=== PATIENT | female | born 1990 | race Caucasian/White ===

== ENCOUNTER 2017-05-18 20:37 | Observation (INO) | payer MEDICAID ==
[2017-05-18] MEDS ORDERED: Ondansetron 4 MG/2 ML SDV IVPUSH ONE (20:46)
[2017-05-18] MEDS ORDERED: Sodium Chloride 0.9% 1,000 ML IV ONE (20:46)
[2017-05-18] MEDS ORDERED: Morphine 4 MG/ML Syringe IVPUSH ONE (20:58)
--- NOTE | 2017-05-18 20:58 | EDM.PDOC ---
<Jadon Rivera - Last Filed: 05/18/17 22:48> ED HPI GENERAL MEDICAL PROBLEM - General Chief Complaint: Abdominal Pain Stated Complaint: VOMITING Time Seen by Provider: 05/18/17 20:44 - History of Present Illness INITIAL COMMENTS - FREE TEXT/NARRATIVE: CT demonstrates acute appendicitis without rupture general surgery was consult with Dr. Eaton will see the patient in the emergency department for further evaluation admission and orders - Related Data Allergies Allergy/AdvReac Type Severity Reaction Status Date / Time No Known Allergies Allergy Verified 05/19/17 01:56 Home Meds: Home Meds Ciprofloxacin HCl [Cipro] 500 mg PO BID 5 Days #10 tablet 05/20/17 [Rx] traMADol [Ultram] 50 mg PO Q6H PRN #20 tab 05/20/17 [Rx] Course - Vital Signs Last Recorded V/S: Last Vital Signs Temp 98.8 F 05/20/17 08:00 Pulse 90 05/20/17 14:49 Resp 16 05/20/17 14:49 BP 107/69 05/20/17 08:00 Pulse Ox 98 05/20/17 08:00 - Orders/Labs/Meds Labs: Laboratory Tests 05/18/17 05/18/17 05/18/17 Range/Units 20:50 20:50 20:50 WBC 14.70 H (4.0-11.0) K/uL RBC 4.08 L (4.30-5.90) M/uL Hgb 13.4 (12.0-16.0) g/dL Hct 38.3 (36.0-46.0) % MCV 93.9 (80.0-98.0) fL MCH 32.8 H (27.0-32.0) pg MCHC 35.0 (31.0-37.0) g/dL RDW Std Deviation 43.2 (28.0-62.0) fl RDW Coeff of Ryann 13 (11.0-15.0) % Plt Count 323 (150-400) K/uL MPV 9.00 (7.40-12.00) fL Neut % (Auto) 76.4 (48.0-80.0) % Lymph % (Auto) 15.7 L (16.0-40.0) % [place] % (Auto) 7.5 (0.0-15.0) % Eos % (Auto) 0.3 (0.0-7.0) % Baso % (Auto) 0.1 (0.0-1.5) % Neut # (Auto) 11.2 H (1.4-5.7) K/uL Lymph # (Auto) 2.3 (0.6-2.4) K/uL [place] # (Auto) 1.1 H (0.0-0.8) K/uL Eos # (Auto) 0.1 (0.0-0.7) K/uL Baso # (Auto) 0.0 (0.0-0.1) K/uL Nucleated RBC % 0.0 /100WBC Nucleated RBCs # 0 K/uL Sodium 135 L (136-145) mmol/L Potassium 3.5 (3.5-5.1) mmol/L Chloride 100 (98-107) mmol/L Carbon Dioxide 24.5 (21.0-32.0) mmol/L BUN 12 (7.0-18.0) mg/dL Creatinine 0.7 (0.6-1.0) mg/dL Est Cr Clr Drug Dosing 108.63 mL/min Estimated GFR (MDRD) > 60.0 ml/min Glucose 99 (74-106) mg/dL Calcium 9.5 (8.5-10.1) mg/dL Total Bilirubin 0.7 (0.2-1.0) mg/dL AST 17 (15-37) IU/L ALT 27 (14-63) IU/L Alkaline Phosphatase 63 (46-116) U/L Total Protein 7.9 (6.4-8.2) g/dL Albumin 3.9 (3.4-5.0) g/dL Globulin 4.0 H (2.0-3.5) g/dL Albumin/Globulin Ratio 1.0 L (1.3-2.8) Amylase 41 (25-115) U/L Lipase 94 (73-393) U/L HCG, Qual (NEG) Urine Color Urine Appearance Urine pH (5.0-8.0) Ur Specific [place] (1.001-1.035) Urine Protein (NEGATIVE) mg/dL Urine Glucose (UA) (NEGATIVE) mg/dL Urine Ketones (NEGATIVE) mg/dL Urine Occult Blood (NEGATIVE) Urine Nitrite (NEGATIVE) Urine Bilirubin (NEGATIVE) Urine Urobilinogen (<2.0) EU/dL Ur Leukocyte Esterase (NEGATIVE) Urine RBC (0-2/HPF) Urine WBC (0-5/HPF) Ur Epithelial Cells (NONE-FEW) Urine Bacteria (NEGATIVE) 05/18/17 05/18/17 Range/Units 20:50 22:40 WBC (4.0-11.0) K/uL RBC (4.30-5.90) M/uL Hgb (12.0-16.0) g/dL Hct (36.0-46.0) % MCV (80.0-98.0) fL MCH (27.0-32.0) pg MCHC (31.0-37.0) g/dL RDW Std Deviation (28.0-62.0) fl RDW Coeff of Ryann (11.0-15.0) % Plt Count (150-400) K/uL MPV (7.40-12.00) fL Neut % (Auto) (48.0-80.0) % Lymph % (Auto) (16.0-40.0) % [place] % (Auto) (0.0-15.0) % Eos % (Auto) (0.0-7.0) % Baso % (Auto) (0.0-1.5) % Neut # (Auto) (1.4-5.7) K/uL Lymph # (Auto) (0.6-2.4) K/uL [place] # (Auto) (0.0-0.8) K/uL Eos # (Auto) (0.0-0.7) K/uL Baso # (Auto) (0.0-0.1) K/uL Nucleated RBC % /100WBC Nucleated RBCs # K/uL Sodium (136-145) mmol/L Potassium (3.5-5.1) mmol/L Chloride (98-107) mmol/L Carbon Dioxide (21.0-32.0) mmol/L BUN (7.0-18.0) mg/dL Creatinine (0.6-1.0) mg/dL Est Cr Clr Drug Dosing mL/min Estimated GFR (MDRD) ml/min Glucose (74-106) mg/dL Calcium (8.5-10.1) mg/dL Total Bilirubin (0.2-1.0) mg/dL AST (15-37) IU/L ALT (14-63) IU/L Alkaline Phosphatase (46-116) U/L Total Protein (6.4-8.2) g/dL Albumin (3.4-5.0) g/dL Globulin (2.0-3.5) g/dL Albumin/Globulin Ratio (1.3-2.8) Amylase (25-115) U/L Lipase (73-393) U/L HCG, Qual NEGATIVE (NEG) Urine Color YELLOW Urine Appearance CLEAR Urine pH 6.5 (5.0-8.0) Ur Specific [place] <= 1.005 (1.001-1.035) Urine Protein TRACE (NEGATIVE) mg/dL Urine Glucose (UA) NEGATIVE (NEGATIVE) mg/dL Urine Ketones >=80 (NEGATIVE) mg/dL Urine Occult Blood NEGATIVE (NEGATIVE) Urine Nitrite NEGATIVE (NEGATIVE) Urine Bilirubin NEGATIVE (NEGATIVE) Urine Urobilinogen 0.2 (<2.0) EU/dL Ur Leukocyte Esterase NEGATIVE (NEGATIVE) Urine RBC 0-2 (0-2/HPF) Urine WBC 1-2 (0-5/HPF) Ur Epithelial Cells FEW (NONE-FEW) Urine Bacteria FEW (NEGATIVE) Meds: Medications Discontinued Medications Generic Name Dose Route Start Last Admin Trade Name Mónica PRN Reason Stop Dose Admin Acetaminophen 650 mg 05/19/17 10:38 Tylenol PO Q6H PRN Pain (mild 1-3) Bupivacaine HCl Confirm 05/19/17 08:09 Sensorcaine-Mpf 0.5% Administered 05/19/17 08:10 Dose 10 ml .ROUTE .STK-MED ONE Cefazolin Sodium Confirm 05/19/17 08:09 Ancef Administered 05/19/17 08:10 Dose 1 gm .ROUTE .STK-MED ONE Dexamethasone Confirm 05/19/17 08:18 Dexamethasone Administered 05/19/17 08:19 Dose 20 mg .ROUTE .STK-MED ONE Fentanyl Confirm 05/19/17 08:11 Sublimaze Administered 05/19/17 08:12 Dose 250 mcg .ROUTE .STK-MED ONE Fentanyl 50 mcg 05/19/17 09:47 Sublimaze IVPUSH 05/19/17 13:00 Q5M PRN Pain (moderate 4-6) Glycopyrrolate Confirm 05/19/17 10:01 Robinul Administered 05/19/17 10:02 Dose 0.4 mg .ROUTE .STK-MED ONE Sodium Chloride 1,000 mls @ 999 mls/hr 05/18/17 20:46 05/18/17 20:58 Normal Saline IV 05/18/17 21:46 999 mls/hr STAT ONE Administration Cefoxitin Sodium 2 gm/ Premix 50 mls @ 100 mls/hr 05/18/17 23:18 05/18/17 23: 49 IV 05/18/17 23:47 100 mls/hr ONETIME ONE Administration Lactated Ringer's 1,000 mls @ 125 mls/hr 05/18/17 23:30 05/20/17 08:33 Ringers, Lactated IV 125 mls/hr ASDIRECTED MUMTAZ Administration Cefoxitin Sodium 1 gm/ Premix 50 mls @ 100 mls/hr 05/19/17 09:00 05/19/17 15: 58 IV 05/21/17 09:29 100 mls/hr ONETIME MUMTAZ Administration Cefoxitin Sodium Confirm 05/19/17 08:13 Mefoxin In Dextrose,Iso-Osm 1 Gm/50 Ml Administered 05/19/17 08:14 Dose 50 mls @ as directed .ROUTE .STK-MED ONE Cefoxitin Sodium 1 gm/ Premix 50 mls @ 100 mls/hr 05/19/17 16:00 05/20/17 08: 45 IV 05/20/17 08:29 100 mls/hr Q8H MUMTAZ Administration Iopamidol 100 ml 05/18/17 21:46 05/18/17 22:17 Isovue-370 (76%) IVPUSH 05/18/17 21:47 100 ml ONETIME STA Administration Lidocaine HCl Confirm 05/19/17 08:15 Xylocaine-Mpf 1% Administered 05/19/17 08:16 Dose 5 ml .ROUTE .STK-MED ONE Midazolam HCl Confirm 05/19/17 08:11 Versed 1 Mg/Ml Administered 05/19/17 08:12 Dose 2 mg .ROUTE .STK-MED ONE Morphine Sulfate 4 mg 05/18/17 20:58 05/18/17 21:03 Morphine IVPUSH 05/18/17 20:59 4 mg ONETIME ONE Administration Morphine Sulfate 0 mg 05/18/17 23:49 05/19/17 07:19 Morphine IVPUSH 2 mg Q1H PRN Administration Pain Neostigmine Methylsulfate Confirm 05/19/17 10:01 Neostigmine Administered 05/19/17 10:02 Dose 5 mg .ROUTE .STK-MED ONE Ondansetron HCl 4 mg 05/18/17 20:46 05/18/17 20:58 Zofran IVPUSH 05/18/17 20:47 4 mg ONETIME ONE Administration Ondansetron HCl 4 mg 05/18/17 23:50 05/19/17 02:34 Zofran IVPUSH 4 mg Q6H PRN Administration Nausea/Vomiting Ondansetron HCl Confirm 05/19/17 08:17 Zofran Administered 05/19/17 08:18 Dose 4 mg .ROUTE .STK-MED ONE Oxycodone/Acetaminophen 2 tab 05/19/17 10:38 05/20/17 12:14 Percocet 325-5 Mg PO 2 tab Q4H PRN Administration Pain (moderate 4-6) Promethazine HCl 25 mg 05/19/17 10:38 Phenergan IM Q6H PRN Nausea Propofol Confirm 05/19/17 08:11 Diprivan 20 Ml Administered 05/19/17 08:12 Dose 200 mg .ROUTE .STK-MED ONE Rocuronium [place] Confirm 05/19/17 08:15 Zemuron Administered 05/19/17 08:16 Dose 100 mg .ROUTE .STK-MED ONE Succinylcholine Chloride Confirm 05/19/17 08:15 Quelicin Administered 05/19/17 08:16 Dose 200 mg .ROUTE .STK-MED ONE Departure - Departure Time of Disposition: 22:49 Disposition: Admitted As Inpatient 65 Condition: Good Clinical Impression: Appendicitis Qualifiers: Appendicitis type: acute appendicitis Acute appendicitis type: with localized peritonitis Qualified Code(s): K35.3 - Acute appendicitis with localized peritonitis - Discharge Information <Glo Gonzalez - Last Filed: 05/24/17 21:21> ED HPI GENERAL MEDICAL PROBLEM - General Source of Information: Reports: Patient History Limitations: Reports: No Limitations - History of Present Illness INITIAL COMMENTS - FREE TEXT/NARRATIVE: HISTORY AND PHYSICAL: History of present illness: Patient is a 26-year-old female who presents to the emergency room today with complaints of nausea, vomiting and generalized abdominal pain. She states that on 05/14/2017, she started to have epigastric pain which has now migrated into her mid and right lower quadrant. Monday she began to have intermittent nausea and vomiting. Yesterday she started to have some dysuria. She denies any fever, chills, chest pain or shortness of breath. States she has had some loose stools but no diarrhea/constipation. Currently on her menstrual period, "normal". Review of systems: As per history of present illness and below otherwise all systems reviewed and negative. Past medical history: As per history of present illness and as reviewed below otherwise noncontributory. Surgical history: As per history of present illness and as reviewed below otherwise noncontributory. Social history: No reported history of drug or alcohol abuse. Family history: As per history of present illness and as reviewed below otherwise noncontributory. Physical exam: General: Well-developed and well-nourished 26-year-old female. Alert and oriented. Nontoxic appearing and in no acute distress. HEENT: Atraumatic, normocephalic, pupils reactive, negative for conjunctival pallor or scleral icterus, mucous membranes dry, throat clear, neck supple, nontender, trachea midline. Lungs: Clear to auscultation, breath sounds equal bilaterally, chest nontender. Heart: S1S2, regular, negative for clicks, rubs, or JVD. Abdomen: Soft, nondistended, tenderness to the umbilical area and right lower quadrant. Rebound tenderness RLQ. Negative for masses or hepatosplenomegaly. Negative for costovertebral tenderness. Pelvis: Stable nontender. Genitourinary: Deferred. Rectal: Deferred. Extremities: Atraumatic, moves all extremities per self without difficulty and deficits, negative for cords or calf pain. Neurovascular unremarkable. Neuro: Awake, alert, oriented. Cranial nerves II through XII unremarkable. Cerebellum unremarkable. Motor and sensory unremarkable throughout. Exam nonfocal. Notes: Patient does appear to be dehydrated as her lips are dry and cracked. IV fluids and medications will be given. Diagnostics: CBC, CMP, amylase, lipase, UA, urine , CT abdomen and pelvis Therapeutics: IV fluid, Zofran, morphine Impression: Appendicitis Plan: Admission Definitive disposition and diagnosis as appropriate pending reevaluation and review of above. Duration: Day(s): Location: Reports: Abdomen Abdomen Pain Score (Numeric/FACES): 10 ED ROS GENERAL - Review of Systems Review Of Systems: ROS reveals no pertinent complaints other than HPI. ED EXAM, GI/ABD - Physical Exam Exam: See Below (See dictation) Course - Orders/Labs/Meds Labs: Laboratory Tests 05/18/17 05/18/17 05/18/17 Range/Units 20:50 20:50 20:50 WBC 14.70 H (4.0-11.0) K/uL RBC 4.08 L (4.30-5.90) M/uL Hgb 13.4 (12.0-16.0) g/dL Hct 38.3 (36.0-46.0) % MCV 93.9 (80.0-98.0) fL MCH 32.8 H (27.0-32.0) pg MCHC 35.0 (31.0-37.0) g/dL RDW Std Deviation 43.2 (28.0-62.0) fl RDW Coeff of Ryann 13 (11.0-15.0) % Plt Count 323 (150-400) K/uL MPV 9.00 (7.40-12.00) fL Neut % (Auto) 76.4 (48.0-80.0) % Lymph % (Auto) 15.7 L (16.0-40.0) % [place] % (Auto) 7.5 (0.0-15.0) % Eos % (Auto) 0.3 (0.0-7.0) % Baso % (Auto) 0.1 (0.0-1.5) % Neut # (Auto) 11.2 H (1.4-5.7) K/uL Lymph # (Auto) 2.3 (0.6-2.4) K/uL [place] # (Auto) 1.1 H (0.0-0.8) K/uL Eos # (Auto) 0.1 (0.0-0.7) K/uL Baso # (Auto) 0.0 (0.0-0.1) K/uL Nucleated RBC % 0.0 /100WBC Nucleated RBCs # 0 K/uL Sodium 135 L (136-145) mmol/L Potassium 3.5 (3.5-5.1) mmol/L Chloride 100 (98-107) mmol/L Carbon Dioxide 24.5 (21.0-32.0) mmol/L BUN 12 (7.0-18.0) mg/dL Creatinine 0.7 (0.6-1.0) mg/dL Est Cr Clr Drug Dosing 108.63 mL/min Estimated GFR (MDRD) > 60.0 ml/min Glucose 99 (74-106) mg/dL Calcium 9.5 (8.5-10.1) mg/dL Total Bilirubin 0.7 (0.2-1.0) mg/dL AST 17 (15-37) IU/L ALT 27 (14-63) IU/L Alkaline Phosphatase 63 (46-116) U/L Total Protein 7.9 (6.4-8.2) g/dL Albumin 3.9 (3.4-5.0) g/dL Globulin 4.0 H (2.0-3.5) g/dL Albumin/Globulin Ratio 1.0 L (1.3-2.8) Amylase 41 (25-115) U/L Lipase 94 (73-393) U/L HCG, Qual (NEG) Urine Color Urine Appearance Urine pH (5.0-8.0) Ur Specific [place] (1.001-1.035) Urine Protein (NEGATIVE) mg/dL Urine Glucose (UA) (NEGATIVE) mg/dL Urine Ketones (NEGATIVE) mg/dL Urine Occult Blood (NEGATIVE) Urine Nitrite (NEGATIVE) Urine Bilirubin (NEGATIVE) Urine Urobilinogen (<2.0) EU/dL Ur Leukocyte Esterase (NEGATIVE) Urine RBC (0-2/HPF) Urine WBC (0-5/HPF) Ur Epithelial Cells (NONE-FEW) Urine Bacteria (NEGATIVE) 05/18/17 05/18/17 Range/Units 20:50 22:40 WBC (4.0-11.0) K/uL RBC (4.30-5.90) M/uL Hgb (12.0-16.0) g/dL Hct (36.0-46.0) % MCV (80.0-98.0) fL MCH (27.0-32.0) pg MCHC (31.0-37.0) g/dL RDW Std Deviation (28.0-62.0) fl RDW Coeff of Ryann (11.0-15.0) % Plt Count (150-400) K/uL MPV (7.40-12.00) fL Neut % (Auto) (48.0-80.0) % Lymph % (Auto) (16.0-40.0) % [place] % (Auto) (0.0-15.0) % Eos % (Auto) (0.0-7.0) % Baso % (Auto) (0.0-1.5) % Neut # (Auto) (1.4-5.7) K/uL Lymph # (Auto) (0.6-2.4) K/uL [place] # (Auto) (0.0-0.8) K/uL Eos # (Auto) (0.0-0.7) K/uL Baso # (Auto) (0.0-0.1) K/uL Nucleated RBC % /100WBC Nucleated RBCs # K/uL Sodium (136-145) mmol/L Potassium (3.5-5.1) mmol/L Chloride (98-107) mmol/L Carbon Dioxide (21.0-32.0) mmol/L BUN (7.0-18.0) mg/dL Creatinine (0.6-1.0) mg/dL Est Cr Clr Drug Dosing mL/min Estimated GFR (MDRD) ml/min Glucose (74-106) mg/dL Calcium (8.5-10.1) mg/dL Total Bilirubin (0.2-1.0) mg/dL AST (15-37) IU/L ALT (14-63) IU/L Alkaline Phosphatase (46-116) U/L Total Protein (6.4-8.2) g/dL Albumin (3.4-5.0) g/dL Globulin (2.0-3.5) g/dL Albumin/Globulin Ratio (1.3-2.8) Amylase (25-115) U/L Lipase (73-393) U/L HCG, Qual NEGATIVE (NEG) Urine Color YELLOW Urine Appearance CLEAR Urine pH 6.5 (5.0-8.0) Ur Specific [place] <= 1.005 (1.001-1.035) Urine Protein TRACE (NEGATIVE) mg/dL Urine Glucose (UA) NEGATIVE (NEGATIVE) mg/dL Urine Ketones >=80 (NEGATIVE) mg/dL Urine Occult Blood NEGATIVE (NEGATIVE) Urine Nitrite NEGATIVE (NEGATIVE) Urine Bilirubin NEGATIVE (NEGATIVE) Urine Urobilinogen 0.2 (<2.0) EU/dL Ur Leukocyte Esterase NEGATIVE (NEGATIVE) Urine RBC 0-2 (0-2/HPF) Urine WBC 1-2 (0-5/HPF) Ur Epithelial Cells FEW (NONE-FEW) Urine Bacteria FEW (NEGATIVE)
[2017-05-18 21:23] LABS: CHLORIDE,CL 100 mmol/L (98-107); SODIUM,NA 135 mmol/L (136-145)
[2017-05-18] MEDS ORDERED: Iopamidol 755 Mg/ML 100 ML Bottle IVPUSH STA (21:46)
[2017-05-18] MEDS ORDERED: cefOXitin 2 GM in Premix Bag 1 BAG IV ONE (23:18)
--- NOTE | 2017-05-18 23:18 | PCM.HP ---
H&P History of Present Illness - General Date of Service: 05/18/17 Source of Information: Patient History Limitations: Reports: No Limitations - History of Present Illness Onset of Symptoms: Reports: Gradual Symptom Onset Date: 05/16/17 Duration of Symptoms: Reports: Day(s):, Getting Worse Location: Reports: Abdomen Quality: Reports: Ache, Pressure Severity: Moderate Improves with: Reports: Rest Worsens with: Reports: Movement Context: Reports: Sick Contact Associated Symptoms: Reports: Nausea/Vomiting Abdomen Pain Score (Numeric/FACES): 10 - Related Data Allergies/Adverse Reactions: Allergies Allergy/AdvReac Type Severity Reaction Status Date / Time No Known Allergies Allergy Verified 05/18/17 20:47 Home Medications: Home Meds . 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: Musculoskeletal History: Reports: None Neurological History: Reports: None Psychiatric History: Reports: None Endocrine/Metabolic History: Reports: None Hematologic History: Reports: None Immunologic History: Reports: None Oncologic (Cancer) History: Reports: None Dermatologic History: Reports: None - Infectious Disease History Infectious Disease History: Reports: None - Past Surgical History Head Surgeries/Procedures: Reports: None GI Surgical History: Reports: Cholecystectomy Social & Family History - Family History Family Medical History: Noncontributory - Tobacco Use Smoking Status *Q: Never Smoker - Caffeine Use Caffeine Use: Reports: Coffee - Alcohol Use Alcohol Use History: Yes - Recreational Drug Use Recreational Drug Use: No H&P Review of Systems - Review of Systems: Review Of Systems: See Below General: Reports: Fever, Decreased Appetite. Denies: Chills, Night Sweats HEENT: Reports: No Symptoms Pulmonary: Denies: Shortness of Breath, Wheezing Cardiovascular: Denies: Chest Pain, Palpitations Gastrointestinal: Reports: Abdominal Pain, Anorexia, Diarrhea, Decreased Appetite, Flatus, Nausea, Vomiting. Denies: Black Stool, Bloody Stool, Constipation, Difficulty Swallowing, Distension, Hematemesis, Hematochezia, Melena Genitourinary: Reports: No Symptoms Musculoskeletal: Reports: No Symptoms Skin: Reports: No Symptoms Psychiatric: Reports: No Symptoms Neurological: Reports: No Symptoms Hematologic/Lymphatic: Reports: No Symptoms Immunologic: Reports: No Symptoms Exam - Exam Exam: See Below - Vital Signs Vital Signs: Last Vital Signs Temp 99.5 F 05/18/17 23:00 Pulse 92 05/18/17 23:00 Resp 17 05/18/17 23:00 BP 111/57 L 05/18/17 23:00 Pulse Ox 98 05/18/17 23:00 Weight: 180 lb - Exam General: Alert, Oriented, Cooperative, Mild Distress HEENT: Conjunctiva Clear, Pupils Equal, Pupils Reactive Neck: Supple, Trachea Midline Lungs: Clear to Auscultation, Normal Respiratory Effort. No: Wheezing Cardiovascular: Regular Rate, Regular Rhythm, Normal S1, Normal S2. No: Tachycardia, Systolic Murmur, Diastolic Murmur GI/Abdominal Exam: Normal Bowel Sounds, Soft, No Distention, Rebound, Tender. No: Guarding, Rigid, Hernia, Mass (Female) Exam: Deferred Rectal (Female) Exam: Deferred Back Exam: Normal Inspection Extremities: Normal Inspection Peripheral Pulses: 4+: Posterior Tibial (L), Posterior Tibial (R), Dorsalis Pedis (L), Dorsalis Pedis (R) Skin: Warm, Dry, Intact Neurological: Cranial Nerves Intact Neuro Extensive - Mental Status: Alert, Oriented x3 Psychiatric: Alert, Normal Affect, Normal Mood - Patient Data Lab Results Last 24 hrs: Laboratory Results - last 24 hr 05/18/17 05/18/17 05/18/17 Range/Units 20:50 20:50 20:50 WBC 14.70 H (4.0-11.0) K/uL RBC 4.08 L (4.30-5.90) M/uL Hgb 13.4 (12.0-16.0) g/dL Hct 38.3 (36.0-46.0) % MCV 93.9 (80.0-98.0) fL MCH 32.8 H (27.0-32.0) pg MCHC 35.0 (31.0-37.0) g/dL RDW Std Deviation 43.2 (28.0-62.0) fl RDW Coeff of Ryann 13 (11.0-15.0) % Plt Count 323 (150-400) K/uL MPV 9.00 (7.40-12.00) fL Neut % (Auto) 76.4 (48.0-80.0) % Lymph % (Auto) 15.7 L (16.0-40.0) % Webb % (Auto) 7.5 (0.0-15.0) % Eos % (Auto) 0.3 (0.0-7.0) % Baso % (Auto) 0.1 (0.0-1.5) % Neut # (Auto) 11.2 H (1.4-5.7) K/uL Lymph # (Auto) 2.3 (0.6-2.4) K/uL Webb # (Auto) 1.1 H (0.0-0.8) K/uL Eos # (Auto) 0.1 (0.0-0.7) K/uL Baso # (Auto) 0.0 (0.0-0.1) K/uL Nucleated RBC % 0.0 /100WBC Nucleated RBCs # 0 K/uL Sodium 135 L (136-145) mmol/L Potassium 3.5 (3.5-5.1) mmol/L Chloride 100 (98-107) mmol/L Carbon Dioxide 24.5 (21.0-32.0) mmol/L BUN 12 (7.0-18.0) mg/dL Creatinine 0.7 (0.6-1.0) mg/dL Est Cr Clr Drug Dosing 108.63 mL/min Estimated GFR (MDRD) > 60.0 ml/min Glucose 99 (74-106) mg/dL Calcium 9.5 (8.5-10.1) mg/dL Total Bilirubin 0.7 (0.2-1.0) mg/dL AST 17 (15-37) IU/L ALT 27 (14-63) IU/L Alkaline Phosphatase 63 (46-116) U/L Total Protein 7.9 (6.4-8.2) g/dL Albumin 3.9 (3.4-5.0) g/dL Globulin 4.0 H (2.0-3.5) g/dL Albumin/Globulin Ratio 1.0 L (1.3-2.8) Amylase 41 (25-115) U/L Lipase 94 (73-393) U/L HCG, Qual (NEG) Urine Color Urine Appearance Urine pH (5.0-8.0) Ur Specific [place] (1.001-1.035) Urine Protein (NEGATIVE) mg/dL Urine Glucose (UA) (NEGATIVE) mg/dL Urine Ketones (NEGATIVE) mg/dL Urine Occult Blood (NEGATIVE) Urine Nitrite (NEGATIVE) Urine Bilirubin (NEGATIVE) Urine Urobilinogen (<2.0) EU/dL Ur Leukocyte Esterase (NEGATIVE) Urine RBC (0-2/HPF) Urine WBC (0-5/HPF) Ur Epithelial Cells (NONE-FEW) Urine Bacteria (NEGATIVE) 05/18/17 05/18/17 Range/Units 20:50 22:40 WBC (4.0-11.0) K/uL RBC (4.30-5.90) M/uL Hgb (12.0-16.0) g/dL Hct (36.0-46.0) % MCV (80.0-98.0) fL MCH (27.0-32.0) pg MCHC (31.0-37.0) g/dL RDW Std Deviation (28.0-62.0) fl RDW Coeff of Ryann (11.0-15.0) % Plt Count (150-400) K/uL MPV (7.40-12.00) fL Neut % (Auto) (48.0-80.0) % Lymph % (Auto) (16.0-40.0) % Webb % (Auto) (0.0-15.0) % Eos % (Auto) (0.0-7.0) % Baso % (Auto) (0.0-1.5) % Neut # (Auto) (1.4-5.7) K/uL Lymph # (Auto) (0.6-2.4) K/uL Webb # (Auto) (0.0-0.8) K/uL Eos # (Auto) (0.0-0.7) K/uL Baso # (Auto) (0.0-0.1) K/uL Nucleated RBC % /100WBC Nucleated RBCs # K/uL Sodium (136-145) mmol/L Potassium (3.5-5.1) mmol/L Chloride (98-107) mmol/L Carbon Dioxide (21.0-32.0) mmol/L BUN (7.0-18.0) mg/dL Creatinine (0.6-1.0) mg/dL Est Cr Clr Drug Dosing mL/min Estimated GFR (MDRD) ml/min Glucose (74-106) mg/dL Calcium (8.5-10.1) mg/dL Total Bilirubin (0.2-1.0) mg/dL AST (15-37) IU/L ALT (14-63) IU/L Alkaline Phosphatase (46-116) U/L Total Protein (6.4-8.2) g/dL Albumin (3.4-5.0) g/dL Globulin (2.0-3.5) g/dL Albumin/Globulin Ratio (1.3-2.8) Amylase (25-115) U/L Lipase (73-393) U/L HCG, Qual NEGATIVE (NEG) Urine Color YELLOW Urine Appearance CLEAR Urine pH 6.5 (5.0-8.0) Ur Specific [place] <= 1.005 (1.001-1.035) Urine Protein TRACE (NEGATIVE) mg/dL Urine Glucose (UA) NEGATIVE (NEGATIVE) mg/dL Urine Ketones >=80 (NEGATIVE) mg/dL Urine Occult Blood NEGATIVE (NEGATIVE) Urine Nitrite NEGATIVE (NEGATIVE) Urine Bilirubin NEGATIVE (NEGATIVE) Urine Urobilinogen 0.2 (<2.0) EU/dL Ur Leukocyte Esterase NEGATIVE (NEGATIVE) Urine RBC 0-2 (0-2/HPF) Urine WBC 1-2 (0-5/HPF) Ur Epithelial Cells FEW (NONE-FEW) Urine Bacteria FEW (NEGATIVE) Result Diagrams: 05/18/17 20:50 05/18/17 20:50 *Q Meaningful Use (ADM) - VTE *Q VTE Criteria *Q: - Stroke *Q Stroke Criteria *Q: - AMI *Q AMI Criteria *Q: - Problem List (1) Appendicitis SNOMED Code(s): 57312894 ICD Code: K37 - UNSPECIFIED APPENDICITIS Status: Acute Current Visit: Yes Problem List Initiated/Reviewed/Updated: Yes Orders Last 24hrs: Active Orders 24 hr Category Date Time Status Abdomen Pelvis w Cont [CT] Stat Exams 05/18/17 20:58 Taken Assessment/Plan Comment:: CT scan has been reviewed and reveals an appendicitis without rupture. Laparoscopic appendectomy, possible open appendectomy. Both operative procedures, along with the risks, including, but not limited to, bleeding, infection, pneumonia, deep venous thrombosis, pulmonary emboli, myocardial infarction, and adjacent organ injury have been reviewed with the patient who voices understanding, offers no questions and agrees to proceed.
[2017-05-18] MEDS: Lactated Ringers 1,000 ML IV SCH (23:48)
[2017-05-18] MEDS ORDERED: Ondansetron 4 MG/2 ML SDV IVPUSH PRN (23:50)
[2017-05-19] MEDS: Morphine 4 MG/ML Syringe IVPUSH PRN ×2 (02:34→07:19)
--- NOTE | 2017-05-19 08:03 | PCM.PREANE ---
Preanesthetic Assessment - Procedure Proposed Procedure: laparascopic appendectomy - Anesthesia/Transfusion/Family Hx Anesthesia History: Prior Anesthesia Without Reaction Family History of Anesthesia Reaction: No Transfusion History: No Prior Transfusion(s) Intubation History: Unknown - Review of Systems General: Other (RLQ abdominal pain) Pulmonary: No Symptoms Cardiovascular: No Symptoms Gastrointestinal: Abdominal Pain Neurological: No Symptoms Other: Reports: None - Physical Assessment NPO Status Date: 05/18/17 NPO Status Time: 23:00 O2 Sat by Pulse Oximetry: 98 Respiratory Rate: 19 Vital Signs: Last Vital Signs Temp 98.4 F 05/19/17 05:48 Pulse 72 05/19/17 05:48 Resp 19 05/19/17 05:48 BP 118/68 05/19/17 05:48 Pulse Ox 98 05/19/17 05:48 Height: 5 ft 5 in Weight: 181 lb 12.8 oz ASA Class: 2E Mental Status: Alert & Oriented x3 Airway Class: Mallampati = 1 Dentition: Reports: Normal Dentition Thyro-Mental Finger Breadths: 3 Mouth Opening Finger Breadths: 3 ROM/Head Extension: Full Lungs: Clear to Auscultation, Normal Respiratory Effort Cardiovascular: Regular Rate, Regular Rhythm, No Murmurs - Lab Values: Laboratory Last Values WBC 14.70 K/uL (4.0-11.0) H 05/18/17 20:50 RBC 4.08 M/uL (4.30-5.90) L 05/18/17 20:50 Hgb 13.4 g/dL (12.0-16.0) 05/18/17 20:50 Hct 38.3 % (36.0-46.0) 05/18/17 20:50 MCV 93.9 fL (80.0-98.0) 05/18/17 20:50 MCH 32.8 pg (27.0-32.0) H 05/18/17 20:50 MCHC 35.0 g/dL (31.0-37.0) 05/18/17 20:50 RDW Std Deviation 43.2 fl (28.0-62.0) 05/18/17 20:50 RDW Coeff of Ryann 13 % (11.0-15.0) 05/18/17 20:50 Plt Count 323 K/uL (150-400) 05/18/17 20:50 MPV 9.00 fL (7.40-12.00) 05/18/17 20:50 Neut % (Auto) 76.4 % (48.0-80.0) 05/18/17 20:50 Lymph % (Auto) 15.7 % (16.0-40.0) L 05/18/17 20:50 [place] % (Auto) 7.5 % (0.0-15.0) 05/18/17 20:50 Eos % (Auto) 0.3 % (0.0-7.0) 05/18/17 20:50 Baso % (Auto) 0.1 % (0.0-1.5) 05/18/17 20:50 Neut # (Auto) 11.2 K/uL (1.4-5.7) H 05/18/17 20:50 Lymph # (Auto) 2.3 K/uL (0.6-2.4) 05/18/17 20:50 [place] # (Auto) 1.1 K/uL (0.0-0.8) H 05/18/17 20:50 Eos # (Auto) 0.1 K/uL (0.0-0.7) 05/18/17 20:50 Baso # (Auto) 0.0 K/uL (0.0-0.1) 05/18/17 20:50 Nucleated RBC % 0.0 /100WBC 05/18/17 20:50 Nucleated RBCs # 0 K/uL 05/18/17 20:50 Sodium 135 mmol/L (136-145) L 05/18/17 20:50 Potassium 3.5 mmol/L (3.5-5.1) 05/18/17 20:50 Chloride 100 mmol/L (98-107) 05/18/17 20:50 Carbon Dioxide 24.5 mmol/L (21.0-32.0) 05/18/17 20:50 BUN 12 mg/dL (7.0-18.0) 05/18/17 20:50 Creatinine 0.7 mg/dL (0.6-1.0) 05/18/17 20:50 Est Cr Clr Drug Dosing 108.63 mL/min 05/18/17 20:50 Estimated GFR (MDRD) > 60.0 ml/min 05/18/17 20:50 Glucose 99 mg/dL (74-106) 05/18/17 20:50 Calcium 9.5 mg/dL (8.5-10.1) 05/18/17 20:50 Total Bilirubin 0.7 mg/dL (0.2-1.0) 05/18/17 20:50 AST 17 IU/L (15-37) 05/18/17 20:50 ALT 27 IU/L (14-63) 05/18/17 20:50 Alkaline Phosphatase 63 U/L (46-116) 05/18/17 20:50 Total Protein 7.9 g/dL (6.4-8.2) 05/18/17 20:50 Albumin 3.9 g/dL (3.4-5.0) 05/18/17 20:50 Globulin 4.0 g/dL (2.0-3.5) H 05/18/17 20:50 Albumin/Globulin Ratio 1.0 (1.3-2.8) L 05/18/17 20:50 Amylase 41 U/L (25-115) 05/18/17 20:50 Lipase 94 U/L (73-393) 05/18/17 20:50 HCG, Qual NEGATIVE (NEG) 05/18/17 20:50 Urine Color YELLOW 05/18/17 22:40 Urine Appearance CLEAR 05/18/17 22:40 Urine pH 6.5 (5.0-8.0) 05/18/17 22:40 Ur Specific [place] <= 1.005 (1.001-1.035) 05/18/17 22:40 Urine Protein TRACE mg/dL (NEGATIVE) 05/18/17 22:40 Urine Glucose (UA) NEGATIVE mg/dL (NEGATIVE) 05/18/17 22:40 Urine Ketones >=80 mg/dL (NEGATIVE) 05/18/17 22:40 Urine Occult Blood NEGATIVE (NEGATIVE) 05/18/17 22:40 Urine Nitrite NEGATIVE (NEGATIVE) 05/18/17 22:40 Urine Bilirubin NEGATIVE (NEGATIVE) 05/18/17 22:40 Urine Urobilinogen 0.2 EU/dL (<2.0) 05/18/17 22:40 Ur Leukocyte Esterase NEGATIVE (NEGATIVE) 05/18/17 22:40 Urine RBC 0-2 (0-2/HPF) 05/18/17 22:40 Urine WBC 1-2 (0-5/HPF) 05/18/17 22:40 Ur Epithelial Cells FEW (NONE-FEW) 05/18/17 22:40 Urine Bacteria FEW (NEGATIVE) 05/18/17 22:40 - Allergies Allergies/Adverse Reactions: Allergies Allergy/AdvReac Type Severity Reaction Status Date / Time No Known Allergies Allergy Verified 05/19/17 01:56 - Blood Blood Available: No Product(s) Available: None - Anesthesia Plan Free Text/Narrative:: has had narcotic for pain Pre-Op Medication Ordered: None - Acknowledgements Anesthesia Type Planned: General Anesthesia (OET) Pt an Appropriate Candidate for the Planned Anesthesia: Yes Alternatives and Risks of Anesthesia Discussed w Pt/Guardian: Yes Pt/Guardian Understands and Agrees with Anesthesia Plan: Yes PreAnesthesia Questionnaire HEENT History: Reports: None Cardiovascular History: Reports: None Respiratory History: Reports: None Gastrointestinal History: Reports: None Genitourinary History: Reports: None 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: Musculoskeletal History: Reports: None Neurological History: Reports: None Psychiatric History: Reports: None Endocrine/Metabolic History: Reports: None Hematologic History: Reports: None Immunologic History: Reports: None Oncologic (Cancer) History: Reports: None Dermatologic History: Reports: None - Infectious Disease History Infectious Disease History: Reports: None - Past Surgical History Head Surgeries/Procedures: Reports: None GI Surgical History: Reports: Cholecystectomy - SUBSTANCE USE Smoking Status *Q: Never Smoker Second Hand Smoke Exposure: No Days Per Week of Alcohol Use: 3 Number of Drinks Per Day: 2 Total Drinks Per Week: 6 Recreational Drug Use History: No - HOME MEDS Home Medications: Home Meds . [No Known Home Meds] 05/18/17 [History] - CURRENT (IN HOUSE) MEDS Current Meds: Current Medications Lactated Ringer's (Ringers, Lactated) 1,000 mls @ 125 mls/hr IV ASDIRECTED MUMTAZ Last Admin: 05/18/17 23:48 Dose: 125 mls/hr Cefoxitin Sodium 1 gm/ Premix 50 mls @ 100 mls/hr IV ONETIME MUM[facility] Stop: 05/21/17 09:29 Morphine Sulfate (Morphine) 0 mg IVPUSH Q1H PRN PRN Reason: Pain Last Admin: 03/23/18 07:19 Dose: 2 mg Ondansetron HCl (Zofran) 4 mg IVPUSH Q6H PRN PRN Reason: Nausea/Vomiting Last Admin: 05/19/17 02:34 Dose: 4 mg Discontinued Medications Sodium Chloride (Normal Saline) 1,000 mls @ 999 mls/hr IV STAT ONE Stop: 05/18/17 21:46 Last Admin: 05/18/17 20:58 Dose: 999 mls/hr Cefoxitin Sodium 2 gm/ Premix 50 mls @ 100 mls/hr IV ONETIME ONE Stop: 05/18/17 23:47 Last Admin: 05/18/17 23:49 Dose: 100 mls/hr Iopamidol (Isovue-370 (76%)) 100 ml IVPUSH ONETIME STA Stop: 05/18/17 21:47 Last Admin: 05/18/17 22:17 Dose: 100 ml Morphine Sulfate (Morphine) 4 mg IVPUSH ONETIME ONE Stop: 05/18/17 20:59 Last Admin: 05/18/17 21:03 Dose: 4 mg Ondansetron HCl (Zofran) 4 mg IVPUSH ONETIME ONE Stop: 05/18/17 20:47 Last Admin: 05/18/17 20:58 Dose: 4 mg
[2017-05-19] MEDS ORDERED: ceFAZolin 1 GM Vial ONE (08:09)
[2017-05-19] MEDS ORDERED: Bupivacaine 0.5% 10 ML SDV ONE (08:09)
[2017-05-19] MEDS ORDERED: Midazolam 1 MG/ML 2 ML SDV ONE (08:11)
[2017-05-19] MEDS ORDERED: fentaNYL 250 MCG/5 ML SDV ONE (08:11)
[2017-05-19] MEDS ORDERED: Propofol 200 MG/20 ML SDV ONE (08:11)
[2017-05-19] MEDS ORDERED: Rocuronium 10 MG/ML 10 ML Syringe ONE (08:15)
[2017-05-19] MEDS ORDERED: Succinylcholine 200 MG/10 ML MDV ONE (08:15)
[2017-05-19] MEDS ORDERED: Ondansetron 4 MG/2 ML SDV ONE (08:17)
[2017-05-19] MEDS ORDERED: Dexamethasone 4 MG/ML 5 ML MDV ONE (08:18)
[2017-05-19] MEDS: Lactated Ringers 1,000 ML IV SCH ×3 (08:23→23:56)
[2017-05-19] MEDS ORDERED: cefOXitin 1 GM in Premix Bag 1 BAG IV SCH (09:00)
[2017-05-19] MEDS ORDERED: fentaNYL 100 MCG/2 ML SDV IVPUSH PRN (09:47)
[2017-05-19] MEDS ORDERED: Glycopyrrolate 0.2 MG/ML SDV ONE (10:01)
[2017-05-19] MEDS ORDERED: Neostigmine Methylsulfate 1 MG/ML 5 ML Syringe ONE (10:01)
[2017-05-19] MEDS ORDERED: Promethazine 25 MG/ML SDV IM PRN (10:38)
[2017-05-19] MEDS ORDERED: Acetaminophen 325 MG Tab PO PRN (10:38)
--- NOTE | 2017-05-19 10:43 | PCM.OPNOTE ---
- General Post-Op/Procedure Note Date of Surgery/Procedure: 05/19/17 Operative Procedure(s): Laparoscopic appendectomy Pre Op Diagnosis: Acute appendicitis Post-Op Diagnosis: acute appendicitis with localized peritonitis Anesthesia Technique: General ET Tube (ASA IIE) Primary Surgeon: Silvino Eaton Fluid Replacement, Intraop: 1,200 EBL in mLs: 20 Condition: Fair Free Text/Narrative:: Intake & Output 05/18/17 05/19/17 05/19/17 19:59 03:59 11:59 Intake Total 1050 Balance 1050 Dictation [id number] CPT CODE 95031
--- NOTE | 2017-05-19 11:01 | PCM.POSTAN ---
POST ANESTHESIA ASSESSMENT - VITAL SIGNS Pulse Rate: 90 SaO2: 96 (Room Air) Resp Rate: 14 - RESPIRATORY Respiratory Status: Respiratory Rate WNL, Airway Patent, O2 Saturation Stable - CARDIOVASCULAR CV Status: Pulse Rate WNL, Blood Pressure Stable - GASTROINTESTINAL GI Status: No Symptoms - PAIN Pain Score: 0 - POST OP HYDRATION Hydration Status: Adequate & Stable
--- NOTE | 2017-05-19 11:15 | OR ---
SURGEON: Silvino Eaton M.D. DATE OF PROCEDURE: 05/18/2017 OPERATION PERFORMED: Laparoscopic appendectomy. ANESTHESIA: General endotracheal. ASA CLASSIFICATION: IIE. PREOPERATIVE DIAGNOSIS: Acute appendicitis. POSTOPERATIVE DIAGNOSIS: Acute appendicitis with localized peritonitis. ESTIMATED BLOOD LOSS: 20 mL. INTRAOPERATIVE FLUID REPLACEMENT: 1200 mL of crystalloid. DESCRIPTION OF PROCEDURE: The patient was taken to the operating room and placed on the operating table in the supine position. Time-out was called for appropriate identification of the patient and procedure. Thigh-high TEDs and sequential compression boots were placed. Following satisfactory attainment of general endotracheal anesthesia, a Davenport catheter was placed in the patient's urinary bladder. The abdomen was prepped with DuraPrep solution. Sterile drapes were applied. The skin just above the umbilicus was infiltrated with 0.5% Marcaine solution. The skin incision was made and deepened through the subcutaneous tissue obtaining hemostasis with the use of electrocautery. Dissection was carried into the subcutaneous tissue. The Veress needle was then introduced into the peritoneal cavity. Saline drop test was positive. Carbon dioxide pneumoperitoneum was established with the release set at 13 cm of water. Once we had a satisfactory pneumoperitoneum, the patient was positioned with the head down and rolled to the left. Under camera vision, 12 mm suprapubic and 5 mm left lower quadrant ports were placed. Each incision had preemptively been infiltrated with 0.5% Marcaine solution. Attention was turned to the right lower quadrant. There was a moderate amount of exudate present. We were able to tease out the appendix. This was acutely inflamed with localized peritonitis, but there was no evidence of rupture and no abscess cavity was identified. The mesoappendix was taken down with the Harmonic scalpel. The appendix was then transected using the Endo- ELTON stapler with a blue load. Once the appendix was amputated, this was placed in an Endopouch and secured. The right lower quadrant was then irrigated with several 100 mL of saline and 1 L of 1% Ancef solution. All fluid was aspirated. The appendix was then delivered through the suprapubic incision removing the port at the same time. Under camera vision, the left lower quadrant port was removed and finally the supraumbilical camera and port were removed. The wound was inspected for hemostasis and small bleeding sites were electrocoagulated. The suprapubic and supraumbilical incisions were closed in 2 layers approximating the subcutaneous tissue with 3-0 Polysorb and the skin with subcuticular 4-0 Monocryl. The left lower quadrant port was closed with subcuticular 4-0 Monocryl. All incisions were Steri-Stripped and dressed with sterile Tegaderm pads. Sponge, needle, and instrument counts were all correct. The patient tolerated the procedure well. The Davenport catheter was removed prior to emergence from anesthesia. Following emergence from anesthesia and extubation, the patient was taken to recovery room in satisfactory condition. MALLORIE CAMPBELL /[id number]
--- NOTE | 2017-05-19 12:41 | CT ---
EXAM DATE: 05/18/17 PATIENT'S AGE: 26 Patient: LARISSA POWERS Facility: [place], [place] Site . Site : 1990 Study: CT Abdomen/Pelvis W RILEY [id number]/22/2018 10:25:34 PM Ordering Physician: Doctor Obando Final Report: INDICATION: Lower abdominal pain. Vomiting. Painful urination. TECHNIQUE: CT abdomen and pelvis acquired with i.v. 100 mL Isovue 370. Coronal and sagittal reformats were obtained. COMPARISON: None FINDINGS: [employer] Supervisor CT images: Nonobstructive bowel gas pattern. IUD in the central pelvis. Cholecystectomy surgical clips are noted in the right upper abdomen. Lower chest: Unremarkable. Liver: Unremarkable. Spleen: Unremarkable. Pancreas: Unremarkable. Gallbladder and bile ducts: Gallbladder is surgically absent. No abnormal biliary dilatation. Kidneys: Unremarkable. No kidney or ureteral stones and no hydronephrosis seen. Adrenal glands: Unremarkable. GI tract: The appendix is thickened, measuring 13 millimeters in diameter on coronal reformat series 203, image 50. Fat stranding and fluid in the right lower abdominal quadrant. No free air or abscess. Vascular: Unremarkable. Lymph nodes: Unremarkable. Miscellaneous: No free air. No abscess. Pelvic Organs: Satisfactory positioning of IUD in the endometrial canal. Adnexal structures unremarkable. No bladder wall calcifications. Bones: Unremarkable for age. IMPRESSION: 1. Acute appendicitis. No perforation or abscess. Abnormal appendix identified in right lower quadrant on series 201, image 100. Dictated by Shahram Gross MD @ 05/18/2017 10:38:53 PM Dictated by: Shahram Gross MD @ 05/18/2017 22:39:01 ----- ADDENDUM ----- ADDENDUM: 1. Dr. Rivera confirmed report receipt on 05/18/2017 at 10:51pm APPRENTICE COSMETOLOGIST. Dictated by Shahram Gross MD @ May 18 2017 11:06PM (Electronic Signature) Report Signed by Proxy. [facility] BRONX HOSPITALAimee
[2017-05-19] MEDS: Acetaminophen/oxyCODONE 325-5 MG Tab PO PRN ×3 (12:42→22:06)
[2017-05-19] MEDS: cefOXitin 1 GM in Premix Bag 1 BAG IV SCH ×2 (16:37→23:57)
[2017-05-20] MEDS: Acetaminophen/oxyCODONE 325-5 MG Tab PO PRN ×2 (06:59→12:14)
[2017-05-20] MEDS: Lactated Ringers 1,000 ML IV SCH (08:33)
[2017-05-20] MEDS: cefOXitin 1 GM in Premix Bag 1 BAG IV SCH (08:45)
--- NOTE | 2017-05-20 11:09 | PCM.DCSUM1 ---
Discharge Summary - Hospital Course Free Text/Narrative:: 26-year-old female who presented to the emergency room with an acute abdomen. She was found have an acute appendicitis. She was admitted to the hospital, started on IV fluids and antibiotics and taken to the operating room on May 19. She underwent an uneventful laparoscopic appendectomy. HPI Initial Comments: See history and physical. - Discharge Data Discharge Date: 05/20/17 Discharge Disposition: Home, Self-Care 01 Condition: Stable - Discharge Diagnosis/Problem(s) (1) Appendicitis SNOMED Code(s): 06478031 ICD Code: K37 - UNSPECIFIED APPENDICITIS Status: Acute Current Visit: Yes Qualifiers: Appendicitis type: acute appendicitis Acute appendicitis type: with localized peritonitis Qualified Code(s): K35.3 - Acute appendicitis with localized peritonitis - Patient Summary/Data Operative Procedure(s) Performed: Laparoscopic appendectomy - Patient Instructions Diet: Usual Diet as Tolerated Activity: No Lifting Over 25 Pounds (For 6 weeks) Activity, Other: May return to light duty after clinic appointment on May 31. Driving: Do Not Drive (For 24 hours) Showering/Bathing: May Shower Wound/Incision Care: Keep Operative Site/Wound Site Clean and Dry Notify Provider of: Fever, Nausea and/or Vomiting Other/Special Instructions: Ciprofloxacin 500 mg by mouth twice a day 5 days. Tramadol 50 mg by mouth every 6 hours when necessary pain, 20 tablets. - Discharge Plan Home Medications: Home Meds . [No Known Home Meds] 05/18/17 [History] Patient Handouts: Laparoscopic Appendectomy, Adult, Care After, [id number] Referrals: Silvino Eaton MD [Physician] - 05/31/17 1:45 pm - Discharge Summary/Plan Comment DC Time >30 min.: No Discharge Summary/Plan Comment: Patient will be discharged from the hospital today. Ciprofloxacin 500 mg by mouth twice a day 5 days. Tramadol 50 mg every 6 hours as needed for pain. Clinic follow-up visit on May 31. - General Info Date of Service: 05/20/17 Functional Status: Reports: Pain Controlled, Tolerating Diet, Ambulating, Urinating. Denies: New Symptoms - Review of Systems General: Denies: Fever, Weakness, Fatigue HEENT: Reports: No Symptoms Pulmonary: Denies: Shortness of Breath Cardiovascular: Denies: Chest Pain Gastrointestinal: Denies: Abdominal Pain, Decreased Appetite, Diarrhea, Nausea, Vomiting Genitourinary: Denies: Dysuria, Frequency, Burning Musculoskeletal: Reports: No Symptoms Skin: Reports: No Symptoms Neurological: Reports: No Symptoms Psychiatric: Reports: No Symptoms - Patient Data Vitals - Most Recent: Last Vital Signs Temp 98.8 F 05/20/17 08:00 Pulse 73 05/20/17 08:00 Resp 16 05/20/17 08:00 BP 107/69 05/20/17 08:00 Pulse Ox 98 05/20/17 08:00 Weight - Most Recent: 181 lb 12.8 oz I&O - Last 24 hours: Intake & Output 05/19/17 05/20/17 05/20/17 19:59 03:59 11:59 Intake Total 2448 1050 1070 Output Total 800 3000 Balance 1648 1050 -1930 Med Orders - Current: Current Medications Acetaminophen (Tylenol) 650 mg PO Q6H PRN PRN Reason: Pain (mild 1-3) Lactated Ringer's (Ringers, Lactated) 1,000 mls @ 125 mls/hr IV ASDIRECTED [facility] Last Admin: 05/20/17 08:33 Dose: 125 mls/hr Morphine Sulfate (Morphine) 0 mg IVPUSH Q1H PRN PRN Reason: Pain Last Admin: 05/19/17 07:19 Dose: 2 mg Ondansetron HCl (Zofran) 4 mg IVPUSH Q6H PRN PRN Reason: Nausea/Vomiting Last Admin: 05/19/17 02:34 Dose: 4 mg Oxycodone/Acetaminophen (Percocet 325-5 Mg) 2 tab PO Q4H PRN PRN Reason: Pain (moderate 4-6) Last Admin: 05/20/17 06:59 Dose: 2 tab Promethazine HCl (Phenergan) 25 mg IM Q6H PRN PRN Reason: Nausea Discontinued Medications Bupivacaine HCl (Sensorcaine-Mpf 0.5%) Confirm Administered Dose 10 ml .ROUTE .STK-MED ONE Stop: 05/19/17 08:10 Cefazolin Sodium (Ancef) Confirm Administered Dose 1 gm .ROUTE .STK-MED ONE Stop: 05/19/17 08:10 Dexamethasone (Dexamethasone) Confirm Administered Dose 20 mg .ROUTE .STK-MED ONE Stop: 05/19/17 08:19 Fentanyl (Sublimaze) Confirm Administered Dose 250 mcg .ROUTE .STK-MED ONE Stop: 05/19/17 08:12 Fentanyl (Sublimaze) 50 mcg IVPUSH Q5M PRN PRN Reason: Pain (moderate 4-6) Stop: 05/19/17 13:00 Glycopyrrolate (Robinul) Confirm Administered Dose 0.4 mg .ROUTE .STK-MED ONE Stop: 05/19/17 10:02 Sodium Chloride (Normal Saline) 1,000 mls @ 999 mls/hr IV STAT ONE Stop: 05/18/17 21:46 Last Admin: 05/18/17 20:58 Dose: 999 mls/hr Cefoxitin Sodium 2 gm/ Premix 50 mls @ 100 mls/hr IV ONETIME ONE Stop: 05/18/17 23:47 Last Admin: 05/18/17 23:49 Dose: 100 mls/hr Cefoxitin Sodium 1 gm/ Premix 50 mls @ 100 mls/hr IV ONETIME [facility]UM[facility]Z Stop: 05/21/17 09:29 Last Admin: 05/19/17 15:58 Dose: 100 mls/hr Cefoxitin Sodium (Mefoxin In Dextrose,Iso-Osm 1 Gm/50 Ml) Confirm Administered Dose 50 mls @ as directed .ROUTE .STK-MED ONE Stop: 05/19/17 08:14 Cefoxitin Sodium 1 gm/ Premix 50 mls @ 100 mls/hr IV Q8H [facility] Stop: 05/20/17 08:29 Last Admin: 05/20/17 08:45 Dose: 100 mls/hr Iopamidol (Isovue-370 (76%)) 100 ml IVPUSH ONETIME STA Stop: 05/18/17 21:47 Last Admin: 05/18/17 22:17 Dose: 100 ml Lidocaine HCl (Xylocaine-Mpf 1%) Confirm Administered Dose 5 ml .ROUTE .STK-MED ONE Stop: 05/19/17 08:16 Midazolam HCl (Versed 1 Mg/Ml) Confirm Administered Dose 2 mg .ROUTE .STK-MED ONE Stop: 05/19/17 08:12 Morphine Sulfate (Morphine) 4 mg IVPUSH ONETIME ONE Stop: 05/18/17 20:59 Last Admin: 05/18/17 21:03 Dose: 4 mg Neostigmine Methylsulfate (Neostigmine) Confirm Administered Dose 5 mg .ROUTE .STK-MED ONE Stop: 05/19/17 10:02 Ondansetron HCl (Zofran) 4 mg IVPUSH ONETIME ONE Stop: 05/18/17 20:47 Last Admin: 05/18/17 20:58 Dose: 4 mg Ondansetron HCl (Zofran) Confirm Administered Dose 4 mg .ROUTE .STK-MED ONE Stop: 05/19/17 08:18 Propofol (Diprivan 20 Ml) Confirm Administered Dose 200 mg .ROUTE .STK-MED ONE Stop: 05/19/17 08:12 Rocuronium [place] (Zemuron) Confirm Administered Dose 100 mg .ROUTE .STK-MED ONE Stop: 05/19/17 08:16 Succinylcholine Chloride (Quelicin) Confirm Administered Dose 200 mg .ROUTE .STK -MED ONE Stop: 05/19/17 08:16 - Exam General: Reports: Alert, Oriented, Cooperative, No Acute Distress HEENT: Reports: Pupils Equal, Pupils Reactive Neck: Reports: Supple Lungs: Reports: Clear to Auscultation, Normal Respiratory Effort. Denies: Wheezing Cardiovascular: Reports: Regular Rate, Regular Rhythm, No Murmurs. Denies: Tachycardia GI/Abdominal Exam: Normal Bowel Sounds, Soft, Non-Tender (Female) Exam: Deferred Rectal (Female) Exam: Deferred Back Exam: Reports: Normal Inspection Extremities: Normal Inspection. No: No Pedal Edema Skin: Reports: Warm, Dry, Intact Wound/Incisions: Reports: Healing Well, Dressing Dry and Intact Neurological: Reports: No New Focal Deficit Psy/Mental Status: Reports: Alert, Normal Affect, Normal Mood *Q Meaningful Use (DIS) - VTE *Q VTE Criteria *Q: - Stroke *Q Stroke Criteria *Q: - AMI *Q AMI Criteria *Q:
--- NOTE | 2017-05-20 14:50 | PCM48HPAN ---
Post Anesthesia Note - EVALUATION WITHIN 48HRS OF ANESTHETIC Vital Signs in Normal Range: Yes Patient Participated in Evaluation: Yes Respiratory Function Stable: Yes Airway Patent: Yes Cardiovascular Function Stable: Yes Hydration Status Stable: Yes Pain Control Satisfactory: Yes Nausea and Vomiting Control Satisfactory: Yes Mental Status Recovered: Yes Pulse Rate: 90 Resp Rate: 16
== END 2017-05-20 12:45 | disposition home or self-care (01) ==
LOC: MW.ED 20:37 → MW.MS 23:19
PROVIDERS: ADMIT Surgery; ATTEND Surgery
DX: K35.3 Acute appendicitis with localized peritonitis (principal); Z90.49 Acquired absence of other specified parts of digestive tract
CPT/HCPCS: 36415; 44970; 74177; 80053; 81001; 82150; 83690; 84703; 85025; 88304; 96361; 96374; 96375; 99285; A9270; J0330; J0690; J0694; J1100; J2250; J2270; J2405; J3010; J7040; J7120; Q9967; 99283; J2704